=== PATIENT | female | born 1940 | race Caucasian/White ===

== ENCOUNTER → 2023-03-09 14:23 | Outpatient (CLI) | payer MEDICARE, SELFPAY ==
--- NOTE | ~2023-03-09 | XR_ITS ---
XR knee RT 3V 03/09/2023 15:46 Indication: Right knee pain Procedure: 3 views right knee Comparison: No prior studies for comparison. Findings: Osteopenia. No fracture, subluxation or dislocation. There is mild patellofemoral compartme nt osteoarthritis. No significant joint effusion. Impression: 1: Mild patellofemoral compartment osteoarthritis. Reviewed, dictated and finalized at location L. Impression: 1: Mild patellofemoral compartment osteoarthritis.
--- NOTE | ~2023-03-09 | XR_ITS ---
XR humerus RT 03/09/2023 15:46 INDICATION: Right arm pain after fall PROCEDURE: 2 views right humerus COMPARISON: No prior studies for comparison. FINDINGS: Fracture, dislocation or subluxation is not identified. The soft tissues appear within norm al limits. No foreign bodies are identified. Osteopenia. IMPRESSION: 1: NO ACUTE BONE OR JOINT ABNORMALITY IDENTIFIED. Reviewed, dictated and finalized at location L.
--- NOTE | ~2023-03-09 | XR_ITS ---
EXAMINATION: XR forearm LT 2V DATE: 03/09/2023 15:46 INDICATION: Left forearm injury. Fall. TECHNIQUE: 2 views of left forearm were obtained. COMPARISON: None. FINDINGS: Bone alignment is normal. No fracture. 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 No elbow joint effusion. IMPRESSION: 1. No fracture. Reviewed, dictated and finalized at location A. IMPRESSION: 1. No fracture.
--- NOTE | ~2023-03-09 | XR_ITS ---
EXAMINATION: FACIAL BONES-3+VIEWS DATE: 03/09/2023 15:46 INDICATION: Fall with head injury TECHNIQUE: Lateral, AP, Eric and Meghann's views of the facial bones were obtained. COMPARISON: None. FINDINGS: No fractures identified although sensitivity for nondisplaced fractures decreased by diffuse osteopen ia.. Specifically the nasal bones and galaviz of the orbits and paranasal sinuses appear intact. Nasal septum is midline. Mandible appears intact and with normal alignment of the temporal mandibular join ts. The mandible and maxilla are edentulous. No air-fluid levels are appreciated within the paranasal sinuses. IMPRESSION: 1. No facial bone fractures identified. Reviewed, dictated and finalized at location A.
== END ==
PROVIDERS: PCP Internal Medicine
DX: M17.11 Unilateral primary osteoarthritis, right knee (principal); R51.9 Headache, unspecified; M79.601 Pain in right arm; W19.XXXA Unspecified fall, initial encounter
CPT/HCPCS: 70150; 73060; 73090; 73562